=== PATIENT | female | born 1930 | race Caucasian/White ===

== ENCOUNTER 2018-09-24 12:39 | Emergency (ER) | payer OTHER ==
[2018-09-24 12:51] VITALS: BP 153/60; PULSE 59; TEMP 98; BMI 26.6
--- NOTE | 2018-09-24 12:57 | PDOC ---
Attending Attestation - Resident Resident Name: Traci Parra - HPI HPI: 09/24/18 13:19 Pt presents to the ED complaining of the acute onset of atraumatic L hip pain yesterday. States that the pain began acutely when she was getting up from a chair. Denies fever, nausea or vomiting or other associated symptoms. 09/24/18 13:21 - Physicial Exam PE: 09/24/18 13:32 Agree with resident exam. Patient has point tenderness in one area near her gluteal muscles, but no bony tenderness. She has no pain at all with passive ROM. - Medical Decision Making 09/24/18 13:32 Pt presents to the ED complaining of atraumatic L hip pain. offered pain control but declined. no signs of infection. most likely muscular pain, but will check xray to rule out fracture. will discharge home if negative.
[2018-09-24] MEDS ORDERED: ACETAMINOPHEN 1000 MG/100 ML VIAL (NON FORMULARY) IVPB ONE (13:10)
--- NOTE | 2018-09-24 13:32 | PDOC ---
History of Present Illness - General Chief Complaint: Pain, Acute Stated Complaint: LEFT HIP PAIN Time Seen by Provider: 09/24/18 12:46 History Source: Patient Exam Limitations: No Limitations - History of Present Illness Initial Comments: 09/24/18 13:28 Pt is an 88yo F with PMH of colon ca s/p resection has been cancer free presenting to ED with complaints of L hip pain. Pain started yesterday at 4pm when patient tried to get off the couch. She has tried taking Advil and ASA but it has not helped. She says the pain is in the L lateral hip and can radiate down to her L knee posteriorly. Pain is worse with movements and when walking. No pain at rest. No other joint pains, no injury, no falls, she is not taking steroids. She also endorses skin lesion on her L anterior thigh and R anterior calf which "used to be age spots". She denies fever, chills, chest pain, leg pain, calf tenderness, syncope, shortness of breath, new leg swelling. PMD: Victorino Meds: see med rec PMH: see hpi Past History - Past Medical History Allergies/Adverse Reactions: Allergies Allergy/AdvReac Type Severity Reaction Status Date / Time egg Allergy Verified 09/24/18 12:40 levofloxacin [From Levaquin] Allergy Verified 09/24/18 12:40 Penicillins Allergy Verified 09/24/18 12:40 Home Medications: Ambulatory Orders Torsemide 10 mg PO HS 09/23/15 Cancer: Yes COPD: No Other medical history: BREAST CA - Surgical History Appendectomy: Yes - Suicide/Smoking/Psychosocial Hx Smoking History: Never smoked Hx Alcohol Use: No Drug/Substance Use Hx: No Substance Use Type: None, Alcohol Review of Systems - Review of Systems Constitutional: No: Chills, Fever, Weakness HEENTM: No: Symptoms Reported Respiratory: No: Symptoms reported Cardiac (ROS): No: Symptoms Reported ABD/GI: No: Symptoms Reported : No: Symptoms Reported Musculoskeletal: Yes: See HPI, Joint Pain (L hip pain). No: Back Pain, Joint Swelling, Muscle Pain, Muscle Weakness, Joint Stiffness Integumentary: Yes: See HPI, Lesions (on L thigh and R santiago) Neurological: No: Symptoms reported *Physical Exam - Vital Signs Last Vital Signs Temp Pulse Resp BP Pulse Ox 98 F 59 L 18 153/60 100 09/24/18 12:41 09/24/18 12:41 09/24/18 12:41 09/24/18 12:41 09/24/18 12:41 - Physical Exam General Appearance: Yes: Appropriately Dressed, Obese. No: Apparent Distress HEENT: positive: EOMI, GEM, Normal ENT Inspection Neck: positive: Trachea midline, Supple Respiratory/Chest: positive: Lungs Clear, Normal Breath Sounds Cardiovascular: positive: Regular Rhythm, Regular Rate, S1, S2. negative: Edema , JVD, Murmur Vascular Pulses: Carotid (R): 2+, Carotid (L): 2+, Dorsalis-Pedis (R): 2+, Doralis-Pedis (L): 2+ Gastrointestinal/Abdominal: positive: Normal Bowel Sounds, Soft. negative: Distended, Guarding, Rebound, Tenderness Musculoskeletal: positive: Other (L lateral hip tender to palpation. No pain with passive ROM. Pain illicited with active ROM. ). negative: CVA Tenderness, Vertebral Tenderness Extremity: positive: Normal Capillary Refill, Pelvis Stable. negative: Coldness , Cyanosis Integumentary: positive: Normal Color, Dry, Warm, Other (erythematous, raised nontender leison around 2cm diameter on L anterior calf. ) Neurologic: positive: cotton dispatcher II-XII NML intact, Fully Oriented, Alert, Normal Mood/ Affect, Normal Response, Motor Strength 5/5 Moderate Sedation - Procedure Monitoring Vital Signs: Procedure Monitoring Vital Signs Temperature 98 F 09/24/18 12:41 Pulse Rate 59 L 09/24/18 12:41 Respiratory Rate 18 09/24/18 12:41 Blood Pressure 153/60 09/24/18 12:41 O2 Sat by Pulse Oximetry (%) 100 09/24/18 12:41 ED Treatment Course - RADIOLOGY Radiology Studies Ordered: Category Date Time Status HIP & PELVIS-LEFT [RAD] Stat Radiology 09/24/18 13:10 Ordered - Medications Given in the ED: ED Medications Discontinued Medications Generic Name Dose Route Start Last Admin Trade Name Freq PRN Reason Stop Dose Admin Acetaminophen 1,000 mg 09/24/18 13:10 09/24/18 13:22 Ofirmev Injection - IVPB 09/24/18 13:11 Not Given ONCE ONE Medical Decision Making - Medical Decision Making 09/24/18 13:31 Pt is an 88yo F with PMH of colon ca s/p resection has been cancer free presenting to ED with complaints of L hip pain. Pain started yesterday at 4pm when patient tried to get off the couch. She has tried taking Advil and ASA but it has not helped. She says the pain is in the L lateral hip and can radiate down to her L knee posteriorly. Pain is worse with movements and when walking. No pain at rest. No other joint pains, no injury, no falls, she is not taking steroids. She also endorses skin lesion on her L anterior thigh and R anterior calf which "used to be age spots". She denies fever, chills, chest pain, leg pain, calf tenderness, syncope, shortness of breath, new leg swelling. Vitals: wnl PE: tender to palpation L lateral hip, pain with active ROM, no pain with passive ROM. Ddx: septic arthritis, bursitis, OA, fracture. Pt refusing pain medication. Will order xray to check for fracture. Low suspicion spinal pathology/etiology or septic joint. Called multiple times for xray to be read. no response. Pt has appointment with gynecological assistant. expressing desire to go home. I personally did not see signs of fracture. Pt has orthopedist and has good follow up. Agrees to plan to go home. Will call if xxray is positive for any findings. *DC/Admit/Observation/Transfer Diagnosis at time of Disposition: Hip pain, left - Discharge Dispostion Disposition: HOME Condition at time of disposition: Good - Referrals Referrals: Mague Gleason [Primary Care Provider] - - Patient Instructions Printed Discharge Instructions: DI for Hip Pain Additional Instructions: You were seen here today for hip pain. The xray has not been officially read. You will get a phone call if there is a fracture. Please make an appointment with your primary care doctor and/or your orthopedist for futher evaluation and management of your symptoms. You can take Tylenol or ibuprofen for your pain. Please come back to the emergency room if pain gets worse, you are unable to move your legs, you are unable to stand, you have numbness/tingling down your leg, if you lose control of bowel/bladder or if any new concerning symptom develops. Thank you - Post Discharge Activity
== END 2018-09-24 15:39 | disposition home or self-care (01) ==
LOC: FER 12:39
DX: M25.552 Pain in left hip (principal); Z85.038 Personal history of other malignant neoplasm of large intestine
CPT/HCPCS: 73523-TC-FY; 99281-25